=== PATIENT | female | born 1995 | race Caucasian/White ===

== ENCOUNTER 2021-05-17 04:26 | Emergency (ER) | payer OTHER ==
[~2021-05-17] VITALS: Ht 177.8 cm; Wt 162.8 kg
[2021-05-17] MEDS ORDERED: BENADRYL25 MG PO (04:36)
[2021-05-17 04:57] LABS: HEMATOCRIT 38.4 % (37.0-47.0); HEMOGLOBIN 12.8 gm/dL (12.0-15.0); MCH 26.3 pg (26.0-34.0); MCHC 33.3 g/dL (28.0-37.0); MCV 79.1 fL (80.0-100.0); RBC 4.85 mil/uL (4.20-5.00); RDW 14.7 % (10.5-14.5); WBC 11.6 thou/uL (4.0-11.0)
[2021-05-17 05:07] LABS: CALCIUM 9.2 mg/dL (8.5-10.1); POTASSIUM 3.8 mmol/L (3.5-5.1)
[2021-05-17 05:17] LABS: ALBUMIN 3.2 g/dL (3.4-5.0); TOTAL BILIRUBIN 0.3 mg/dL (0.2-1.0); TOTAL PROTEIN 7.3 g/dL (6.4-8.2)
[2021-05-17] MEDS ORDERED: CLONAZEPAM 0.50.5 M1 PO (05:53)
[2021-05-17 06:15] VITALS: BP 170/86
--- NOTE | 2021-05-17 07:20 | EKG ---
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1995 Requested By: Sirisha Piedra Order Number: [id number] MD: Vini Charles Measurements Intervals [place] Rate: 102 P: DC: QRS: 49 QRSD: 88 T: 1 QT: 339 QTc: 442 Interpretive Statements NSR Borderline Q waves in inferior leads Non pathological inferior Q-waves Borderline T wave abnormalities Baseline wander in lead(s) II,aVF No previous ECG available for comparison Electronically Signed On 05-17-2021 7:19:47 CDT by Vini Charles [email or web address] <ELECTRONICALLY SIGNED> By: Vini Charles MD, [facility] 05/17/21 0719 0435 0435 Vini Charles MD, FACC /EPI
--- NOTE | 2021-05-17 10:11 | EKG ---
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1995 Requested By: Sirisha Piedra Order Number: [id number] MD: Vini Charles Measurements Intervals [place] Rate: 89 P: 40 [place]: 181 QRS: 55 QRSD: 99 T: 11 QT: 384 QTc: 468 Interpretive Statements Sinus rhythm Borderline T abnormalities, anterior leads Artifact in lead(s) I,II,III,aVR,aVL,aVF Compared to ECG 05/17/2021 04:35:43 No significant changes Electronically Signed On 05-17-2021 10:10:47 CDT by Vini Charles [email or web address] <ELECTRONICALLY SIGNED> By: Vini Charles MD, [facility] 05/17/21 1010 0546 0546 Vini Charles MD, [facility] /[facility]
== END 2021-05-17 06:15 | disposition home or self-care (01) ==
LOC: ER 04:26
PROVIDERS: Student in an Organized Health Care Education/Training Program
DX: F41.9 Anxiety disorder, unspecified (principal); F32.9 Major depressive disorder, single episode, unspecified; F90.9 Attention-deficit hyperactivity disorder, unspecified type; Z90.89 Acquired absence of other organs; Z79.899 Other long term (current) drug therapy

== ENCOUNTER 2021-08-08 18:13 | Emergency (ER) | payer OTHER ==
[~2021-08-08] VITALS: Ht 172.7 cm; Wt 151.5 kg
[~2021-08-08 18:13] MED LIST: BENADRYL25 MG PO; CLONAZEPAM 0.50.5 M1 PO
[2021-08-08 18:40] LABS: BASOPHILS 0.4 % (0.0-2.0); HEMATOCRIT 39.1 % (37.0-47.0); HEMOGLOBIN 12.9 gm/dL (12.0-15.0); LYMPHOCYTES 31.9 % (24.0-44.0); MCH 26.5 pg (26.0-34.0); MCV 80.2 fL (80.0-100.0); MONOCYTES 6.1 % (1.0-8.0); PLATELET COUNT 293 thou/uL (150-400); POLYS 60.6 % (36.0-66.0); RBC 4.87 mil/uL (4.20-5.00); WBC 9.9 thou/uL (4.0-11.0)
[2021-08-08 19:01] LABS: CALCIUM 9.3 mg/dL (8.5-10.1); CREATININE 0.8 mg/dL (0.6-1.0); MAGNESIUM 2.1 mg/dL (1.8-2.4); POTASSIUM 4.1 mmol/L (3.5-5.1)
[2021-08-08 20:57] LABS: URINE BILIRUBIN 1+ (Negative); URINE BLOOD NEGATIVE (Negative); URINE CLARITY CLEAR; URINE COLOR YELLOW; URINE GLUCOSE-RANDOM* NEGATIVE (Negative); URINE KETONES 3+ (Negative); URINE LEUKOCYTES-REFLEX NEGATIVE (Negative); URINE NITRITE-REFLEX NEGATIVE (Negative); URINE PROTEIN (DIPSTICK) NEGATIVE (Negative); URINE SPECIFIC GRAVITY >= 1.030 (1.005-1.035); URINE UROBILINOGEN 0.2 E.U./dl (0.2-1.0)
[2021-08-08 21:50] VITALS: BP 119/67
--- NOTE | 2021-08-09 08:00 | EKG ---
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1995 Requested By: Swapna Smith Order Number: [id number] MD: Vini Charles Measurements Intervals [place] Rate: 97 P: 36 [place]: 156 QRS: 59 QRSD: 95 T: 4 QT: 364 QTc: 463 Interpretive Statements Sinus rhythm Borderline Q waves in inferior leads Compared to ECG 05/17/2021 05:46:09 T-wave abnormality no longer present Electronically Signed On 08-09-2021 8:00:47 [facility] by Vini Charles [email or web address] <ELECTRONICALLY SIGNED> By: Vini Charles MD, [facility] 08/09/21 0800 1847 1847 Vini Charles MD, FACC /EPI
== END 2021-08-08 21:50 | disposition home or self-care (01) ==
LOC: ER 18:13
PROVIDERS: Emergency Medicine
DX: R20.2 Paresthesia of skin (principal); R53.1 Weakness; F41.9 Anxiety disorder, unspecified; F32.9 Major depressive disorder, single episode, unspecified; Z90.89 Acquired absence of other organs; Z79.891 Long term (current) use of opiate analgesic; Z79.899 Other long term (current) drug therapy